=== PATIENT | male | born 1970 | race Caucasian/White ===

== ENCOUNTER 2017-03-13 14:42 | Emergency (ER) | payer MEDICAID ==
[~2017-03-13] VITALS: Ht 162.6 cm; Wt 71.2 kg
[2017-03-13 14:48] VITALS: BP 132/92
--- NOTE | 2017-03-13 14:53 | NUR ---
PT TRIAGED. AMBULATED TO EYE WASH STATION. WAITING FOR A BED. ERMD NOTIFIED OF PATIENT STATUS.
--- NOTE | 2017-03-13 15:13 | NUR ---
46/M BIB FAMILY C/O LT EYE EXPOSURE TO UNKNOWN PLANT x TODAY 1400.HX: NONE.MEDS: NONE. AAOX4 WITH EVEN AND STEADY GAIT; LUNGS CLEAR BL; PATIENT STATES PAIN OF 7/10 AT THIS TIME; PATIENT POSITIONED FOR COMFORT; HOB ELEVATED; BEDRAILS UP X2; BED DOWN. ER MD MADE AWARE OF PT STATUS.
[2017-03-13 16:57] VITALS: BP 158/90
--- NOTE | 2017-03-13 16:57 | NUR ---
Patient discharged with BP 158/90;DENIES HEADACHE AT THIS TIME MD MADE AWARE. Written and verbal after care instructions given and explained. Patient verbalized understanding. Ambulatory with steady gait. All questions addressed prior to discharge. Advised to follow up with PMD.
== END 2017-03-13 16:57 | disposition home or self-care (01) ==
LOC: MED 14:42
DX: T62.2X1A Toxic effect of other ingested (parts of) plant(s), accidental (unintentional), initial encounter (principal); T26.82XA Corrosions of other specified parts of left eye and adnexa, initial encounter; Y93.H2 Activity, gardening and landscaping; Y92.89 Other specified places as the place of occurrence of the external cause; Y99.8 Other external cause status
CPT/HCPCS: 99283